=== PATIENT | female | born 1945 | race Caucasian/White ===

== ENCOUNTER → 2018-01-15 | Day surgery (SDC) | payer MEDICARE, MEDICAID ==
[2018-01-15] VITALS (11 sets, daily range): BP systolic 126–175; BP diastolic 55–92
[~2018-01-15] VITALS: Ht 170.2 cm; Wt 100.0 kg
[~2018-01-15] MED LIST: ALBU6.7H INH; ALBU8.5H4 IH; ALLO100T56 PO; AMLO-93 PO; ASPI-1265 PO; ATOR40TA PO; ATOR80TA PO; ATRNS; BENZ-16 PO; CETI-102 PO; CHOL100046 PO; DOCU250C4 PO; FURO40TA4 PO; GABA-330 PO; GUAI120015 PO; HYDROcodone/acetaminophen 10/325mg tab PO PRN; HYDROcodone/acetaminophen 5mg/325mg tablet PO PRN; HYDROmorphone 1 mg/ml syringe IV PRN; HYDROmorphone inj. 0.5 MG/0.5 ML DISP.SYRIN ONE; INSU100C4 SQ; INSU100I13 SQ; LANTUS SQ; LEVO25TA50 PO; LIDOcaine 1% w/EPI 1:100,000 30ml vial (MDV) ONE; LISI-600 PO; LORA-512 PO; LORA1TAB PO; LORazepam 0.5 MG tablet PO PRN; MAGN400C PO; MESSAGE TO PHARMACY PO ONE; MONT10TA21 PO; MULT-785 PO; OLOP2.5D OP; ORPH100T2 PO; OXAZEpam 15mg capsule PO PRN; PER10325T PO; POLY17PO10 PO; POTA10TA19 PO; RIZA10TA24 PO; SIN25C PO; SITA25TA3 PO; dextrose 50%-water 50ml dispensing syringe IV PRN; dextrose ORAL solution 15 GM/59 ML bottle PO PRN; diphenhydrAMINE 25mg capsule PO PRN; fentaNYL/PF 50MCG/1 ML 2ML syringe ONE; glucagon, human recombinant 1mg kit SUBCUT PRN; insulin Lispro (HumaLOG) vial - multi-dose SQ SCH; insulin glargine (Lantus) pen - multi-dose SQ SCH; iohexol 350 MG/ML 50ML vial IV ONE; iohexol 350MG/ML 100ml bottle IV ONE; midazolam 2 mg/2 ml injection ONE; nitroGLYCERIN 0.4mg SUBLingual tab SL PRN; nitroGLYCERIN-Tridil 50MG/D5W 250 ML IV ONE; normal saline 1000ml 1,000 ML IV SCH; ondansetron/PF 4mg/2ml inj IV PRN; proCHLORperazine 10 MG/2 ml inj IV PRN
[2018-01-15 06:44] LABS: BASOPHILS % (AUTO) 0.4 % (0-1); EOSINOPHILS # (AUTO) 0.5 X10'3 (0-0.9); EOSINOPHILS % (AUTO) 7.5 % (0-6); HEMATOCRIT 33.8 % (35.0-45.0); HEMOGLOBIN 11.4 g/dl (12.0-16.0); LYMPHOCYTES # (AUTO) 1.4 X10'3 (1.1-4.8); LYMPHOCYTES % (AUTO) 22.9 % (21-51); MEAN CORPUSCULAR HEMOGLOBIN 30.2 PG (27.0-31.0); MEAN CORPUSCULAR HGB CONC 33.7 % (33.0-36.5); MEAN CORPUSCULAR VOLUME 89.5 FL (78-98); MEAN PLATELET VOLUME 7.1 FL (7.4-10.4); MONOCYTES # (AUTO) 0.3 X10'3 (0-0.9); MONOCYTES % (AUTO) 5.4 % (2-12); NEUTROPHILS % (AUTO) 63.8 % (42-75); PLATELET COUNT 135 X10'3 (140-440); RED BLOOD COUNT 3.78 X10'6 (4.20-5.60); RED CELL DISTRIBUTION WIDTH 14.7 % (11.5-14.5); WHITE BLOOD COUNT 6.2 X10'3 (4.5-11.0)
[2018-01-15 06:50] LABS: ALBUMIN 3.5 G/DL (3.4-5.0); ANION GAP 9 (8-16); BLOOD UREA NITROGEN 29 MG/DL (7-18); BUN/CREATININE RATIO 27.6 (6.6-38.0); CALCIUM 9.3 MG/DL (8.5-10.1); CHLORIDE 108 MMOL/L (99-107); CREATININE 1.05 MG/DL (0.40-0.90); GLUCOSE 122 MG/DL (70-104); INR 0.9 INR; POTASSIUM 4.5 MMOL/L (3.5-5.1); PROTHROMBIN TIME 9.8 SECONDS (9.0-12.0); SODIUM 144 MMOL/L (135-145); TOTAL CARBON DIOXIDE 26.7 MMOL/L (24-32); eGFR 52 ML/MIN
[2018-01-15 21:06] LABS: HEMOGLOBIN A1C 7.1 % (4.5-6.2)
== END | disposition home or self-care (01) ==
LOC: SSTAY O 05:36
PROVIDERS: ATTEND Internal Medicine Cardiovascular Disease
DX: I25.10 Atherosclerotic heart disease of native coronary artery without angina pectoris (principal); G47.33 Obstructive sleep apnea (adult) (pediatric); I13.0 Hypertensive heart and chronic kidney disease with heart failure and stage 1 through stage 4 chronic kidney disease, or unspecified chronic kidney disease; E11.22 Type 2 diabetes mellitus with diabetic chronic kidney disease; N18.3 Chronic kidney disease, stage 3 (moderate); I50.9 Heart failure, unspecified; F41.9 Anxiety disorder, unspecified; Z90.710 Acquired absence of both cervix and uterus; Z88.5 Allergy status to narcotic agent; Z79.82 Long term (current) use of aspirin; Z79.4 Long term (current) use of insulin; Z86.74 Personal history of sudden cardiac arrest; Z90.89 Acquired absence of other organs; Z88.8 Allergy status to other drugs, medicaments and biological substances; Z98.890 Other specified postprocedural states; Z79.899 Other long term (current) drug therapy
CPT/HCPCS: 36415; 71046; 80048; 82948; 83036; 85025; 85610; 93005; 93458; 99152; 99153; A6257; C1760; C1769; J1170; J1644; J2250; J3010; J3490; J7030; Q0163; Q9967; A4620

== ENCOUNTER 2019-04-01 02:17 | Outpatient (CLI) | payer MEDICARE, MEDICAID ==
[~2019-04-01 02:17] MED LIST changes: -ALBU6.7H INH; -ALBU8.5H4 IH; -ATOR40TA PO; +CAPS60CR6 TP; +DOCU-329 PO; -DOCU250C4 PO; -GUAI120015 PO; -HYDROcodone/acetaminophen 10/325mg tab PO PRN; -HYDROcodone/acetaminophen 5mg/325mg tablet PO PRN; -HYDROmorphone 1 mg/ml syringe IV PRN; -HYDROmorphone inj. 0.5 MG/0.5 ML DISP.SYRIN ONE; -INSU100I13 SQ; -LIDOcaine 1% w/EPI 1:100,000 30ml vial (MDV) ONE; -LORA-512 PO; -LORazepam 0.5 MG tablet PO PRN; -MESSAGE TO PHARMACY PO ONE; -OLOP2.5D OP; -OXAZEpam 15mg capsule PO PRN; -PER10325T PO; -dextrose 50%-water 50ml dispensing syringe IV PRN; -dextrose ORAL solution 15 GM/59 ML bottle PO PRN; -diphenhydrAMINE 25mg capsule PO PRN; -fentaNYL/PF 50MCG/1 ML 2ML syringe ONE; -glucagon, human recombinant 1mg kit SUBCUT PRN; -insulin Lispro (HumaLOG) vial - multi-dose SQ SCH; -insulin glargine (Lantus) pen - multi-dose SQ SCH; -iohexol 350 MG/ML 50ML vial IV ONE; -iohexol 350MG/ML 100ml bottle IV ONE; -midazolam 2 mg/2 ml injection ONE; -nitroGLYCERIN 0.4mg SUBLingual tab SL PRN; -nitroGLYCERIN-Tridil 50MG/D5W 250 ML IV ONE; -normal saline 1000ml 1,000 ML IV SCH; -ondansetron/PF 4mg/2ml inj IV PRN; -proCHLORperazine 10 MG/2 ml inj IV PRN
[2019-04-14] MEDS ORDERED: CYCL1DRO EACHEYE (15:52)
[2019-04-14] MEDS ORDERED: ALLO100T PO (15:52)
[2019-04-15] MEDS ORDERED: FURO80TA87 PO (11:30)
[2019-04-15] MEDS ORDERED: FERR324T4 PO (11:30)
[2019-04-15] MEDS ORDERED: CETI-102 PO (11:30)
[2019-04-15] MEDS ORDERED: POTA20TA19 PO (11:30)
[2019-04-15] MEDS ORDERED: NOVRI SQ (11:30)
[2019-04-15] MEDS ORDERED: ASPI-1265 PO (11:30)
[2019-04-15] MEDS ORDERED: LANTUS SQ (11:30)
[2019-04-15] MEDS ORDERED: DULA0.75 SQ (11:30)
[2019-04-15] MEDS ORDERED: ATOR40TA PO (11:30)
[2019-04-15] MEDS ORDERED: ALLO100T PO (11:30)
[2019-04-15] MEDS ORDERED: LORA0.5T PO (11:30)
[2019-04-15] MEDS ORDERED: DOXE75CA3 PO (11:30)
[2019-04-15] MEDS ORDERED: MAGN400C PO (11:30)
[2019-04-15] MEDS ORDERED: DOCU-329 PO (11:30)
[2019-04-15] MEDS ORDERED: LISI40TA4 PO (11:30)
[2019-04-15] MEDS ORDERED: GABA800T11 PO (11:30)
[2019-04-15] MEDS ORDERED: LEVO75TA PO (11:30)
[2019-04-16] MEDS ORDERED: ASPI81TA49 PO (12:29)
[2019-04-16] MEDS ORDERED: ALBU18HF2 INH (12:29)
[2019-04-16] MEDS ORDERED: FERR-119 PO (12:29)
[2019-04-16] MEDS ORDERED: ERGO500041 PO (12:29)
[2019-04-16] MEDS ORDERED: PRAM1TAB6 PO (12:29)
== END 2019-04-01 23:59 | disposition home or self-care (01) ==
LOC: DIABETIC 02:17
PROVIDERS: ATTEND Nurse Practitioner Family
DX: E11.40 Type 2 diabetes mellitus with diabetic neuropathy, unspecified (principal); E11.21 Type 2 diabetes mellitus with diabetic nephropathy; E78.5 Hyperlipidemia, unspecified; I10 Essential (primary) hypertension
CPT/HCPCS: G0108

== ENCOUNTER 2019-04-17 05:13 | Day surgery (SDC) | payer MEDICARE, MEDICAID ==
[2019-04-14 16:50] LABS: BASOPHILS % (AUTO) 0.6 % (0-1); EOSINOPHILS # (AUTO) 0.3 X10'3 (0-0.9); EOSINOPHILS % (AUTO) 4.1 % (0-6); LYMPHOCYTES # (AUTO) 1.5 X10'3 (1.1-4.8); LYMPHOCYTES % (AUTO) 19.7 % (21-51); MEAN CORPUSCULAR HEMOGLOBIN 30.5 PG (27.0-31.0); MEAN CORPUSCULAR HGB CONC 32.8 g/dL (33.0-36.5); MEAN PLATELET VOLUME 7.4 FL (7.4-10.4); MONOCYTES # (AUTO) 0.6 X10'3 (0-0.9); MONOCYTES % (AUTO) 7.9 % (2-12); NEUTROPHILS % (AUTO) 67.7 % (42-75); PRE OP HEMATOCRIT 33.8 % (35.0-45.0); PRE OP HEMOGLOBIN 11.1 g/dL (12.0-16.0); PRE OP PLATELET COUNT 116 X10'3 (140-440); RED BLOOD COUNT 3.64 X10'6 (4.20-5.60); RED CELL DISTRIBUTION WIDTH 15.3 % (11.5-14.5)
[2019-04-14 17:06] LABS: ALBUMIN 3.6 G/DL (3.4-5.0); ALBUMIN/GLOBULIN RATIO 1.1 (1.1-1.5); ALKALINE PHOSPHATASE 82 IU/L (46-116); BLOOD UREA NITROGEN 80 MG/DL (7-18); CALCIUM 8.5 MG/DL (8.5-10.1); CHLORIDE 113 MMOL/L (99-107); CREATININE 1.51 MG/DL (0.40-0.90); PRE OP ALT 26 U/L (30-65); PRE OP ANION GAP 10 (8-16); PRE OP AST 18 U/L (10-37); PRE OP BILIRUB, TOTAL 0.2 MG/DL (0.0-1.0); PRE OP GLUCOSE 68 MG/DL (70-104); PRE OP POTASSIUM 5.3 MMOL/L (3.4-5.1); PRE OP SODIUM 144 MMOL/L (135-145); TOTAL CARBON DIOXIDE 20.7 MMOL/L (24-32); TOTAL PROTEIN 6.8 G/DL (6.4-8.2); eGFR 34 ML/MIN
[~2019-04-17] VITALS: Ht 170.2 cm; Wt 104.3 kg
[~2019-04-17 05:13] MED LIST changes: +ALBU18HF2 INH; +ALLO100T PO; -ALLO100T56 PO; -AMLO-93 PO; -ASPI-1265 PO; +ASPI81TA49 PO; +ATOR40TA PO; -ATOR80TA PO; -ATRNS; -BENZ-16 PO; -CAPS60CR6 TP; -CHOL100046 PO; +DOXE75CA3 PO; +DULA0.75 SQ; +ERGO500041 PO; +FERR-119 PO; -FURO40TA4 PO; +FURO80TA87 PO; -GABA-330 PO; +GABA800T11 PO; -INSU100C4 SQ; -LEVO25TA50 PO; +LEVO75TA PO; -LISI-600 PO; +LISI40TA4 PO; +LORA0.5T PO; -LORA1TAB PO; -MONT10TA21 PO; -MULT-785 PO; +NOVRI SQ; -ORPH100T2 PO; -POLY17PO10 PO; -POTA10TA19 PO; +POTA20TA19 PO; +PRAM1TAB6 PO; -RIZA10TA24 PO; -SIN25C PO; -SITA25TA3 PO; +ringers solution, lacted 1,000 ML IV SCH
[2019-04-17] MEDS ORDERED: cefazolin/dext.iso 2gm/100 ML IV ONE (05:30)
[2019-04-17] MEDS ORDERED: famotidine 20mg tablet PO ONE (05:30)
[2019-04-17 05:50] VITALS: BP 127/61
[2019-04-17] MEDS ORDERED: BUPIVAcaine/PF 2.5mg/ml (0.25%) 10ml vial ONE (06:37)
[2019-04-17] MEDS ORDERED: BUPIVAcaine/PF 2.5 mg/ml (0.25%) 30ml vial ONE (07:21)
[2019-04-17] MEDS ORDERED: LIDOcaine 1% 30ml preserv. free vial ONE (07:35)
[2019-04-17] MEDS ORDERED: fentaNYL/PF 50MCG/1 ML 2ML syringe ONE (07:36)
[2019-04-17] MEDS ORDERED: MIDAZolam 5mg/5ml vial ONE (07:36)
[2019-04-17] MEDS ORDERED: ketorolac trometh. 30mg/ml inj. ONE (07:39)
[2019-04-17] MEDS ORDERED: propofol inj 20 ML IV ONE (07:47)
[2019-04-17] MEDS ORDERED: LIDOcaine 2% (20mg/ml) 5ml vial ONE (07:47)
[2019-04-17 08:05] VITALS: BP 134/50
--- NOTE | 2019-04-17 08:05 | NUR ---
Received from OR via BED, accompanied by Anesthesiologist DR RENTERIA and report given by Anesthesiolgist. PATIENT A&OX4, DENIES PAIN, V/S WNL, NEUROVASCULAR CHECKS INTACT, 20G PIV LUE, SCD ON, DRESSING TO RIGHT WRIST CDI ELEVATED WITH ICEBAG APPLIED
[2019-04-17 08:15] VITALS: BP 126/59
[2019-04-17 08:25] VITALS: BP 124/62
[2019-04-17 08:35] VITALS: BP 131/63
--- NOTE | 2019-04-17 08:35 | NUR ---
PATIENT A&OX4, DENIES PAIN, V/S WNL, NEUROVASCULAR CHECKS INTACT, 20G PIV LUE D/C, SCD OFF, DRESSING TO RIGHT WRIST CDI ELEVATED WITH ICEBAG APPLIED. I HAVE REVIEWED D/C INSTRUCTIONS WITH PATIENT AND FAMILY AND THEY HAVE VERBALIZED UNDERSTANDING. PATIENT D/C HOME WITH ALL BELONGINGS AND FAMILY GAVE TRANSPORT HOME.
[2019-04-17] MEDS ORDERED: ringers solution, lacted 1,000 ML IV SCH (08:52)
[2019-04-17] MEDS ORDERED: meperidine/PF 25mg/ml syringe IV PRN ×3 (08:55)
[2019-04-17] MEDS ORDERED: proCHLORperazine 10 MG/2 ml inj IV PRN (08:55)
[2019-04-17] MEDS ORDERED: ondansetron/PF 4mg/2ml inj IV PRN (08:55)
[2019-04-17] MEDS ORDERED: morphine 4 MG/ML inj SYRINge IV PRN ×2 (08:55)
== END 2019-04-17 08:35 | disposition home or self-care (01) ==
LOC: PAS 05:13
PROVIDERS: ATTEND Orthopaedic Surgery Hand Surgery
DX: M65.341 Trigger finger, right ring finger (principal); I10 Essential (primary) hypertension; D64.9 Anemia, unspecified; E11.9 Type 2 diabetes mellitus without complications; E66.9 Obesity, unspecified; Z68.37 Body mass index [BMI] 37.0-37.9, adult; Z86.718 Personal history of other venous thrombosis and embolism; Z79.4 Long term (current) use of insulin; Z79.899 Other long term (current) drug therapy
CPT/HCPCS: 26055; 36415; 80053; 82948; 85025; 93005; J1885; J2001; J2250; J2704; J3010; J3490; A4215; J7120

== ENCOUNTER 2019-04-29 20:36 | Emergency (ER) | payer MEDICARE, MEDICAID ==
[~2019-04-29] VITALS: Ht 170.2 cm; Wt 103.2 kg
[~2019-04-29 20:36] MED LIST changes: -ringers solution, lacted 1,000 ML IV SCH
--- NOTE | 2019-04-29 21:25 | NUR ---
relieving RN for Jessica edmonds at bedside to eval pt
[2019-04-29] MEDS ORDERED: HYDROcodone/acetaminophen 10/325mg tab PO ONE (21:45)
[2019-04-29] MEDS ORDERED: LORazepam 1 MG tablet PO ONE (21:45)
[2019-04-29] MEDS ORDERED: CYCL-1 PO (21:48)
[2019-04-29] MEDS ORDERED: ondansetron/PF 4mg/2ml inj IV ONE (22:55)
[2019-04-29] MEDS ORDERED: morphine 4 MG/ML inj SYRINge IV ONE (22:55)
--- NOTE | 2019-04-29 23:40 | NUR ---
pt said pain is 0/10, able to stand and walk without assistance, "I am ready to go home", Jessica ARREOLA aware and will come reeval pt
[2019-04-30 00:17] VITALS: BP 156/60
[2019-04-30] MEDS ORDERED: LIDO700A32 TP (09:10)
== END 2019-04-29 23:50 | disposition home or self-care (01) ==
LOC: ER 20:37
DX: M54.42 Lumbago with sciatica, left side (principal); I25.10 Atherosclerotic heart disease of native coronary artery without angina pectoris; I11.0 Hypertensive heart disease with heart failure; I50.9 Heart failure, unspecified; I25.2 Old myocardial infarction; J45.909 Unspecified asthma, uncomplicated; G47.30 Sleep apnea, unspecified; E11.9 Type 2 diabetes mellitus without complications; G89.29 Other chronic pain; F31.9 Bipolar disorder, unspecified; Z90.710 Acquired absence of both cervix and uterus; Z79.82 Long term (current) use of aspirin; Z79.4 Long term (current) use of insulin; Z79.899 Other long term (current) drug therapy
CPT/HCPCS: 96374; 96375; 99283; J2270; J2405

== ENCOUNTER 2019-04-30 05:12 | Emergency (ER) | payer MEDICARE, MEDICAID ==
[~2019-04-30] VITALS: Ht 170.2 cm; Wt 103.2 kg
[~2019-04-30 05:12] MED LIST changes: +ALLO100T56 PO; +AMLO-93 PO; +ASPI-1265 PO; +ATOR80TA PO; +ATRNS; +BENZ-16 PO; +CAPS60CR6 TP; +CHOL100046 PO; +CYCL-1 PO; +CYCL1DRO EACHEYE; +FERR324T4 PO; +FURO40TA4 PO; +GABA-330 PO; +INSU100C4 SQ; +LEVO25TA50 PO; +LISI-600 PO; +LORA1TAB PO; +MONT10TA21 PO; +MULT-785 PO; +ORPH100T2 PO; +POLY17PO10 PO; +POTA10TA19 PO; +RIZA10TA24 PO; +SIN25C PO; +SITA25TA3 PO
[2019-04-30] MEDS ORDERED: morphine 4 MG/ML inj SYRINge IV ONE ×2 (05:35→06:30)
--- NOTE | 2019-04-30 06:50 | NUR ---
PT ASSISTED TO BSC STAND BY ASSIST AND NOW BACK ON [facility] AWAITING TO HAVE CT
[2019-04-30 07:26] LABS: BASOPHILS % (AUTO) 0.4 % (0-1); EOSINOPHILS # (AUTO) 0.3 X10'3 (0-0.9); HEMATOCRIT 34.7 % (35.0-45.0); HEMOGLOBIN 11.4 g/dl (12.0-16.0); LYMPHOCYTES # (AUTO) 1.4 X10'3 (1.1-4.8); LYMPHOCYTES % (AUTO) 17.3 % (21-51); MEAN CORPUSCULAR HEMOGLOBIN 30.6 PG (27.0-31.0); MEAN CORPUSCULAR HGB CONC 32.9 g/dL (33.0-36.5); MEAN CORPUSCULAR VOLUME 92.8 FL (78-98); MEAN PLATELET VOLUME 8.1 FL (7.4-10.4); MONOCYTES # (AUTO) 0.6 X10'3 (0-0.9); MONOCYTES % (AUTO) 8.2 % (2-12); NEUTROPHILS # (AUTO) 5.5 X10'3 (1.8-7.7); NEUTROPHILS % (AUTO) 70.1 % (42-75); PLATELET COUNT 95 X10'3 (140-440); RED BLOOD COUNT 3.73 X10'6 (4.20-5.60); RED CELL DISTRIBUTION WIDTH 14.7 % (11.5-14.5); WHITE BLOOD COUNT 7.9 X10'3 (4.5-11.0)
[2019-04-30 07:34] LABS: CLARITY,URINE CLEAR (Clear); COLOR,URINE YELLOW (Yellow); GLUCOSE, URINE NEGATIVE (Neg); KETONES,URINE NEGATIVE (Neg); LEUKOCYTE ESTERASE ,URINE NEGATIVE (Neg); NITRITES, URINE NEGATIVE (Neg); OCCULT BLOOD,URINE NEGATIVE (Neg); PH,URINE 5.5 (4.8-8.0); PROTEIN,URINE NEGATIVE (Neg); UROBILINOGEN,URINE 0.2 E.U/dL (0.2-1.0)
[2019-04-30 07:35] LABS: UA COLLECTION TYPE OTHER
[2019-04-30 07:38] LABS: ALANINE AMINOTRANSFERASE 25 U/L (12-78); ALBUMIN 3.6 G/DL (3.4-5.0); ALBUMIN/GLOBULIN RATIO 1.2 (1.1-1.5); ALKALINE PHOSPHATASE 77 IU/L (46-116); ANION GAP 8 (8-16); ASPARTATE AMINO TRANSFERASE 17 U/L (10-37); BILIRUBIN,TOTAL 0.2 MG/DL (0.1-1.0); BLOOD UREA NITROGEN 48 MG/DL (7-18); C-REACTIVE PROTEIN 0.06 MG/DL (0.0-0.5); CALCIUM 8.8 MG/DL (8.5-10.1); CHLORIDE 109 MMOL/L (99-107); CREATININE 1.09 MG/DL (0.40-0.90); GLUCOSE 136 MG/DL (70-104); POTASSIUM 5.1 MMOL/L (3.5-5.1); SODIUM 142 MMOL/L (135-145); TOTAL CARBON DIOXIDE 25.5 MMOL/L (24-32); TOTAL PROTEIN 6.7 G/DL (6.4-8.2); eGFR 49 ML/MIN
[2019-04-30] MEDS ORDERED: cyclobenzaprine 10mg tablet PO ONE (09:05)
[2019-04-30] MEDS ORDERED: LIDO700A32 TP (09:10)
[2019-04-30 09:55] VITALS: BP 144/74
[2019-05-01] MEDS ORDERED: HYDR-3965 PO (04:58)
== END 2019-04-30 09:55 | disposition home or self-care (01) ==
LOC: ER 05:13
DX: M54.42 Lumbago with sciatica, left side (principal); I25.10 Atherosclerotic heart disease of native coronary artery without angina pectoris; I11.0 Hypertensive heart disease with heart failure; I50.9 Heart failure, unspecified; I25.2 Old myocardial infarction; J45.909 Unspecified asthma, uncomplicated; G47.30 Sleep apnea, unspecified; E11.9 Type 2 diabetes mellitus without complications; F31.9 Bipolar disorder, unspecified; G89.29 Other chronic pain; Z90.710 Acquired absence of both cervix and uterus; Z79.82 Long term (current) use of aspirin; Z79.4 Long term (current) use of insulin; Z79.899 Other long term (current) drug therapy
CPT/HCPCS: 36415; 74176; 80053; 81003; 85025; 85610; 86140; 96374; 96376; 99284; J2270

== ENCOUNTER 2019-05-01 04:40 | Emergency (ER) | payer MEDICARE, MEDICAID ==
[~2019-05-01] VITALS: Ht 170.2 cm; Wt 103.2 kg
[~2019-05-01 04:40] MED LIST changes: +LIDO700A32 TP
[2019-05-01 04:51] VITALS: BP 199/94
--- NOTE | 2019-05-01 04:54 | NUR ---
instructed pt she can go to the [employer] store and get lidoderm patches and that she needs to use ice to the area and to massage the area.
[2019-05-01] MEDS ORDERED: HYDR-3965 PO (04:58)
[2019-05-01] MEDS ORDERED: morphine 4 MG/ML inj SYRINge IM ONE (05:00)
== END 2019-05-01 05:42 | disposition home or self-care (01) ==
LOC: ER 04:41
DX: M54.42 Lumbago with sciatica, left side (principal); I25.10 Atherosclerotic heart disease of native coronary artery without angina pectoris; I11.0 Hypertensive heart disease with heart failure; I50.9 Heart failure, unspecified; I25.2 Old myocardial infarction; J45.909 Unspecified asthma, uncomplicated; G47.30 Sleep apnea, unspecified; E11.9 Type 2 diabetes mellitus without complications; G89.29 Other chronic pain; F31.9 Bipolar disorder, unspecified; Z90.710 Acquired absence of both cervix and uterus; Z98.890 Other specified postprocedural states; Z79.82 Long term (current) use of aspirin; Z79.4 Long term (current) use of insulin; Z79.899 Other long term (current) drug therapy
CPT/HCPCS: 96372; 99283; J2270

== ENCOUNTER 2019-05-02 12:53 | Emergency (ER) | payer MEDICARE, MEDICAID ==
[~2019-05-02] VITALS: Ht 165.1 cm; Wt 103.2 kg
[~2019-05-02 12:53] MED LIST changes: +HYDR-3965 PO
[2019-05-02] MEDS ORDERED: ketorolac tromethamine 15mg/ml inj. IM ONE (13:10)
[2019-05-02] MEDS ORDERED: orphenadrine citrate 60mg/2ml inj. IM ONE (13:10)
--- NOTE | 2019-05-02 13:51 | NUR ---
faxed MRI screening sheet to number listed on form
--- NOTE | 2019-05-02 14:13 | NUR ---
PT WAS ABLE TO USE LEFT LEG WHEN TRANSFERRING TO BED, PT STATED SHE WOULD RATHER WALK TO BATHROOM THAN USE THE COMMODE BUT USED LEFT LEG TO TRANSFER TO COMMODE. WHEN TRANSFERRING BACK TO BED SHE CLAIMED THAT SHE COULDNT USE THE LEFT LEG AND REQUIRED HELP.
[2019-05-02 15:13] VITALS: BP 146/52
== END 2019-05-02 15:09 | disposition home or self-care (01) ==
LOC: ER 12:54
DX: G89.29 Other chronic pain (principal); M54.5 Low back pain; I25.10 Atherosclerotic heart disease of native coronary artery without angina pectoris; I11.0 Hypertensive heart disease with heart failure; I50.9 Heart failure, unspecified; I25.2 Old myocardial infarction; J45.909 Unspecified asthma, uncomplicated; G47.30 Sleep apnea, unspecified; E11.9 Type 2 diabetes mellitus without complications; F31.9 Bipolar disorder, unspecified; Z90.710 Acquired absence of both cervix and uterus; Z98.890 Other specified postprocedural states; Z79.82 Long term (current) use of aspirin; Z79.4 Long term (current) use of insulin; Z79.899 Other long term (current) drug therapy
CPT/HCPCS: 72131; 96372; 99284; J1885; J2360

== ENCOUNTER 2020-01-20 04:08 | Emergency (ER) | payer MEDICARE, MEDICAID ==
[~2020-01-20] VITALS: Ht 170.2 cm; Wt 90.9 kg
[~2020-01-20 04:08] MED LIST changes: -ALLO100T56 PO; -AMLO-93 PO; -ASPI-1265 PO; -ATOR80TA PO; -ATRNS; -BENZ-16 PO; -CAPS60CR6 TP; -CETI-102 PO; +CETI-90 PO; -CHOL100046 PO; -CYCL1DRO EACHEYE; -FERR324T4 PO; -FURO40TA4 PO; -GABA-330 PO; -HYDR-3965 PO; -INSU100C4 SQ; -LEVO25TA50 PO; -LISI-600 PO; -LORA1TAB PO; -MONT10TA21 PO; -MULT-785 PO; -ORPH100T2 PO; -POLY17PO10 PO; -POTA10TA19 PO; -RIZA10TA24 PO; -SIN25C PO; -SITA25TA3 PO
[2020-01-20 04:10] VITALS: BP 153/92
[2020-01-20] MEDS ORDERED: morphine 4 MG/ML inj SYRINge IM ONE (04:35)
--- NOTE | 2020-01-20 04:57 | NUR ---
[facility] CALLED FOR TRANSPORT
== END 2020-01-20 05:45 | disposition home or self-care (01) ==
LOC: ER 04:09
DX: M54.32 Sciatica, left side (principal); G89.29 Other chronic pain; I25.10 Atherosclerotic heart disease of native coronary artery without angina pectoris; I50.9 Heart failure, unspecified; I11.0 Hypertensive heart disease with heart failure; I25.2 Old myocardial infarction; J45.909 Unspecified asthma, uncomplicated; G47.30 Sleep apnea, unspecified; E11.9 Type 2 diabetes mellitus without complications; F31.9 Bipolar disorder, unspecified; Z90.710 Acquired absence of both cervix and uterus; Z98.890 Other specified postprocedural states; Z79.82 Long term (current) use of aspirin; Z79.4 Long term (current) use of insulin; Z79.899 Other long term (current) drug therapy
CPT/HCPCS: 96372; 99283; J2270

== ENCOUNTER 2020-02-04 10:54 | Emergency (ER) | payer MEDICARE, MEDICAID ==
[~2020-02-04] VITALS: Ht 172.7 cm; Wt 93.2 kg
[2020-02-04 11:41] LABS: EOSINOPHILS # (AUTO) 0.2 X10'3 (0-0.9); WHITE BLOOD COUNT 4.5 X10'3 (4.5-11.0)
[2020-02-04 11:43] LABS: BASOPHILS % (AUTO) 0.7 % (0-1); EOSINOPHILS % (AUTO) 4.5 % (0-6); HEMATOCRIT 32.5 % (35.0-45.0); HEMOGLOBIN 10.6 g/dl (12.0-16.0); LYMPHOCYTES # (AUTO) 0.8 X10'3 (1.1-4.8); LYMPHOCYTES % (AUTO) 18.5 % (21-51); MEAN CORPUSCULAR HEMOGLOBIN 30.7 PG (27.0-31.0); MEAN CORPUSCULAR HGB CONC 32.5 g/dL (33.0-36.5); MEAN CORPUSCULAR VOLUME 94.4 FL (78-98); MEAN PLATELET VOLUME 8.4 FL (7.4-10.4); MONOCYTES # (AUTO) 0.3 X10'3 (0-0.9); MONOCYTES % (AUTO) 6.3 % (2-12); NEUTROPHILS # (AUTO) 3.1 X10'3 (1.8-7.7); PLATELET COUNT 96 X10'3 (140-440); RED BLOOD COUNT 3.44 X10'6 (4.20-5.60); RED CELL DISTRIBUTION WIDTH 14.4 % (11.5-14.5)
[2020-02-04 11:50] LABS: ALANINE AMINOTRANSFERASE 29 U/L (12-78); ALBUMIN 3.5 G/DL (3.4-5.0); ALBUMIN/GLOBULIN RATIO 1.2 (1.1-1.5); ALKALINE PHOSPHATASE 85 IU/L (46-116); ANION GAP 4 (8-16); ASPARTATE AMINO TRANSFERASE 18 U/L (10-37); BILIRUBIN,TOTAL 0.2 MG/DL (0.1-1.0); BLOOD UREA NITROGEN 74 MG/DL (7-18); BUN/CREATININE RATIO 43.5 (6.6-38.0); CALCIUM 9.3 MG/DL (8.5-10.1); CHLORIDE 112 MMOL/L (99-107); ETHANOL < 0.010 GM/DL (0.0-0.010); GLUCOSE 90 MG/DL (70-104); POTASSIUM 5.8 MMOL/L (3.5-5.1); SODIUM 143 MMOL/L (135-145); TOTAL PROTEIN 6.5 G/DL (6.4-8.2); eGFR 29 ML/MIN
[2020-02-04] MEDS ORDERED: normal saline 1000ML IV soln IVB ONE (12:10)
[2020-02-04] MEDS ORDERED: morphine 4 MG/ML inj SYRINge IV PRN (12:10)
[2020-02-04] MEDS ORDERED: ondansetron/PF 4mg/2ml inj IV ONE (12:10)
[2020-02-04] MEDS ORDERED: HYDR-4353 PO (13:04)
[2020-02-04] MEDS ORDERED: HYDROcodone/acetaminophen 10/325mg tab PO ONE (13:05)
[2020-02-04 13:37] VITALS: BP 166/62
== END 2020-02-04 13:38 | disposition home or self-care (01) ==
LOC: ER 10:55
DX: M54.32 Sciatica, left side (principal); R20.0 Anesthesia of skin; R47.81 Slurred speech; H53.8 Other visual disturbances; I25.10 Atherosclerotic heart disease of native coronary artery without angina pectoris; I11.0 Hypertensive heart disease with heart failure; I50.9 Heart failure, unspecified; I25.2 Old myocardial infarction; J45.909 Unspecified asthma, uncomplicated; E11.9 Type 2 diabetes mellitus without complications; G89.29 Other chronic pain; F31.9 Bipolar disorder, unspecified; Z87.01 Personal history of pneumonia (recurrent); Z86.19 Personal history of other infectious and parasitic diseases; Z90.710 Acquired absence of both cervix and uterus; Z98.890 Other specified postprocedural states; Z60.2 Problems related to living alone; Z79.82 Long term (current) use of aspirin; Z79.4 Long term (current) use of insulin; Z79.899 Other long term (current) drug therapy
CPT/HCPCS: 36415; 80053; 80320; 85025; 93005; 96374; 96375; 99284; J2270; J2405; J7030

== ENCOUNTER 2020-02-18 11:30 | Emergency (ER) | payer MEDICARE, MEDICAID ==
[~2020-02-18] VITALS: Ht 170.2 cm; Wt 88.0 kg
[~2020-02-18 11:30] MED LIST changes: +HYDR-4353 PO
--- NOTE | 2020-02-18 12:24 | NUR ---
To x-ray via w/c.
--- NOTE | 2020-02-18 12:35 | NUR ---
Return from x-ray.
[2020-02-18] MEDS ORDERED: morphine 4 MG/ML inj SYRINge IM ONE (13:10)
[2020-02-18] MEDS ORDERED: ondansetron 4mg rapidly disintigrating tab PO ONE (13:10)
[2020-02-18 13:24] VITALS: BP 169/80
[2020-02-18] MEDS ORDERED: ORPH100T2 PO (13:33)
--- NOTE | 2020-02-18 13:55 | NUR ---
Pt's discharge instructions reviewed. Pt requested [facility] to transport her to home and that she uses their service routinely. [employer] is phoning to arrange the transport to home.
== END 2020-02-18 15:15 | disposition home or self-care (01) ==
LOC: ER 11:31
DX: M54.32 Sciatica, left side (principal); I25.10 Atherosclerotic heart disease of native coronary artery without angina pectoris; I50.9 Heart failure, unspecified; I11.0 Hypertensive heart disease with heart failure; I25.2 Old myocardial infarction; J45.909 Unspecified asthma, uncomplicated; G47.30 Sleep apnea, unspecified; E11.9 Type 2 diabetes mellitus without complications; G89.29 Other chronic pain; F31.9 Bipolar disorder, unspecified; Z86.19 Personal history of other infectious and parasitic diseases; Z90.710 Acquired absence of both cervix and uterus; Z98.890 Other specified postprocedural states; Z79.82 Long term (current) use of aspirin; Z79.4 Long term (current) use of insulin; Z79.899 Other long term (current) drug therapy
CPT/HCPCS: 73502; 96372; 99284; J2270

== ENCOUNTER 2020-02-26 03:32 | Emergency (ER) | payer MEDICARE, MEDICAID ==
[~2020-02-26] VITALS: Ht 170.2 cm; Wt 89.5 kg
[~2020-02-26 03:32] MED LIST changes: +ORPH100T2 PO
[2020-02-26 03:35] VITALS: BP 155/69
[2020-02-26] MEDS ORDERED: morphine 5 MG/ML injection IM ONE (03:50)
[2020-02-26] MEDS ORDERED: morphine 10mg/ml inj. IM ONE (03:50)
[2020-02-26] MEDS ORDERED: diazepam 5mg tablet PO ONE (04:25)
--- NOTE | 2020-02-26 04:30 | NUR ---
PT WAS SCREAMING OUT HELP ME. WHAT ARE THESE SPASMS. MD ASSESSED PT. NEW ORDERS FOR VALIUM RECEIVED. ADMINISTERED ORDERED. PT IS RESTING. NO S/SX OF DISTRESS.
--- NOTE | 2020-02-26 04:54 | NUR ---
[facility] CALLED FOR TRANSPORTATION.
== END 2020-02-26 05:42 | disposition home or self-care (01) ==
LOC: ER 03:33
DX: M54.5 Low back pain (principal); M62.838 Other muscle spasm; I25.10 Atherosclerotic heart disease of native coronary artery without angina pectoris; I50.9 Heart failure, unspecified; I11.0 Hypertensive heart disease with heart failure; I25.2 Old myocardial infarction; J45.909 Unspecified asthma, uncomplicated; G47.30 Sleep apnea, unspecified; E11.9 Type 2 diabetes mellitus without complications; G89.29 Other chronic pain; F31.9 Bipolar disorder, unspecified; Z86.19 Personal history of other infectious and parasitic diseases; Z90.710 Acquired absence of both cervix and uterus; Z98.890 Other specified postprocedural states; Z79.82 Long term (current) use of aspirin; Z79.4 Long term (current) use of insulin; Z79.899 Other long term (current) drug therapy
CPT/HCPCS: 96372; 99283; J2270

== ENCOUNTER 2020-03-12 16:50 | Emergency (ER) | payer MEDICARE, MEDICAID ==
[~2020-03-12] VITALS: Ht 170.2 cm; Wt 86.8 kg
[~2020-03-12 16:50] MED LIST changes: -DOCU-329 PO; +DOCU250C96 PO; -HYDR-4353 PO
[2020-03-12] MEDS ORDERED: ondansetron 4mg rapidly disintigrating tab PO ONE (18:00)
[2020-03-12] MEDS ORDERED: morphine 4 MG/ML inj SYRINge IM ONE (18:00)
[2020-03-12 18:12] VITALS: BP 92/64
== END 2020-03-13 | disposition home or self-care (01) ==
LOC: ER 03-13 02:21
DX: G89.29 Other chronic pain (principal); M54.5 Low back pain; I25.10 Atherosclerotic heart disease of native coronary artery without angina pectoris; I50.9 Heart failure, unspecified; I11.0 Hypertensive heart disease with heart failure; I25.2 Old myocardial infarction; J45.909 Unspecified asthma, uncomplicated; G47.30 Sleep apnea, unspecified; E11.9 Type 2 diabetes mellitus without complications; F31.9 Bipolar disorder, unspecified; Z90.710 Acquired absence of both cervix and uterus; Z98.890 Other specified postprocedural states; Z79.82 Long term (current) use of aspirin; Z79.4 Long term (current) use of insulin; Z79.899 Other long term (current) drug therapy
CPT/HCPCS: 96372; 99284; J2270

== ENCOUNTER 2020-03-17 10:17 | Emergency (ER) | payer MEDICARE, MEDICAID ==
[~2020-03-17] VITALS: Ht 170.2 cm; Wt 85.0 kg
[~2020-03-17 10:17] MED LIST changes: +DOCU-329 PO; -DOCU250C96 PO
[2020-03-17 12:38] VITALS: BP 142/68
== END 2020-03-17 12:41 | disposition home or self-care (01) ==
LOC: ER 10:17
DX: M54.32 Sciatica, left side (principal); I25.10 Atherosclerotic heart disease of native coronary artery without angina pectoris; I50.9 Heart failure, unspecified; I11.0 Hypertensive heart disease with heart failure; I25.2 Old myocardial infarction; J45.909 Unspecified asthma, uncomplicated; G47.30 Sleep apnea, unspecified; E11.9 Type 2 diabetes mellitus without complications; G89.29 Other chronic pain; F31.9 Bipolar disorder, unspecified; Z86.19 Personal history of other infectious and parasitic diseases; Z90.710 Acquired absence of both cervix and uterus; Z98.890 Other specified postprocedural states; Z79.82 Long term (current) use of aspirin; Z79.4 Long term (current) use of insulin; Z79.899 Other long term (current) drug therapy
CPT/HCPCS: 99281

== ENCOUNTER 2020-03-27 18:47 | Emergency (ER) | payer MEDICARE, MEDICAID ==
[~2020-03-27] VITALS: Ht 170.2 cm; Wt 85.0 kg
[~2020-03-27 18:47] MED LIST changes: -DOCU-329 PO; +DOCU250C96 PO
[2020-03-27 18:56] VITALS: BP 188/102
--- NOTE | 2020-03-27 19:40 | NUR ---
Pt. states she cannot have NSAIDs due to low kidney function per Dr. Felix
[2020-03-27] MEDS ORDERED: LIDOcaine 5% patch TP STA (21:09)
[2020-03-27] MEDS ORDERED: ondansetron 4mg rapidly disintigrating tab PO ONE (21:10)
[2020-03-27] MEDS ORDERED: HYDROcodone/acetaminophen 5mg/325mg tablet PO ONE (21:10)
== END 2020-03-27 22:19 | disposition home or self-care (01) ==
LOC: ER 18:48
DX: M54.5 Low back pain (principal); I25.10 Atherosclerotic heart disease of native coronary artery without angina pectoris; I50.9 Heart failure, unspecified; I11.0 Hypertensive heart disease with heart failure; I25.2 Old myocardial infarction; J45.909 Unspecified asthma, uncomplicated; G47.30 Sleep apnea, unspecified; E11.9 Type 2 diabetes mellitus without complications; F31.9 Bipolar disorder, unspecified; Z90.710 Acquired absence of both cervix and uterus; Z98.890 Other specified postprocedural states; Z79.82 Long term (current) use of aspirin; Z79.4 Long term (current) use of insulin; Z79.899 Other long term (current) drug therapy
CPT/HCPCS: 99284

== ENCOUNTER 2020-04-07 06:40 | Emergency (ER) | payer MEDICARE, MEDICAID ==
[~2020-04-07] VITALS: Ht 170.2 cm; Wt 85.5 kg
[2020-04-07] MEDS ORDERED: morphine 4 MG/ML inj SYRINge IV ONE (07:40)
[2020-04-07] MEDS ORDERED: proCHLORperazine 10 MG/2 ml inj IM ONE (07:40)
[2020-04-07] MEDS ORDERED: morphine 4 MG/ML inj SYRINge IM ONE (08:45)
[2020-04-07] MEDS ORDERED: cyclobenzaprine 10mg tablet PO ONE (09:45)
--- NOTE | 2020-04-07 11:37 | NUR ---
PATIENT UP TO BATHROOM WITH WALKER. TOLERATED WELL.
--- NOTE | 2020-04-07 11:52 | NUR ---
PATIENT IS DISCHARGED AND BEING TAKEN HOME PER [facility], SINCE [facility] HAS 2.5 HOUR ETA. DC INSTRUCTIONS GIVEN AND PATIENT VERBALIZED UNDERSTANDING.
[2020-04-07 11:53] VITALS: BP 136/46
== END 2020-04-07 11:57 | disposition home or self-care (01) ==
LOC: ER 06:41
DX: M54.32 Sciatica, left side (principal); I25.10 Atherosclerotic heart disease of native coronary artery without angina pectoris; I50.9 Heart failure, unspecified; I11.0 Hypertensive heart disease with heart failure; I25.2 Old myocardial infarction; J45.909 Unspecified asthma, uncomplicated; G47.30 Sleep apnea, unspecified; E11.9 Type 2 diabetes mellitus without complications; G89.29 Other chronic pain; F31.9 Bipolar disorder, unspecified; Z90.710 Acquired absence of both cervix and uterus; Z79.899 Other long term (current) drug therapy; Z79.82 Long term (current) use of aspirin; Z79.4 Long term (current) use of insulin
CPT/HCPCS: 96372; 96374; 99284; J0780; J2270

== ENCOUNTER 2020-04-09 13:14 | Emergency (ER) | payer MEDICARE, MEDICAID ==
[~2020-04-09] VITALS: Ht 167.6 cm; Wt 86.0 kg
[2020-04-09] MEDS ORDERED: HYDROcodone/acetaminophen 10/325mg tab PO ONE (14:35)
--- NOTE | 2020-04-09 15:30 | NUR ---
PT REPORTS THAT SHE WOULD ISHA TO TAKE A TAXI HOME, I EXPLAINED THAT WE ALREADY CALED [facility]. PT SAID "[facility] TAKES TOO LONG AND I HAVE A WALKER OUT IN FRONT OF MY HOUSE THAT I CAN USE TO GET INSIDE". I EXPAINED THAT WE HAVE ALREADY INITIATED THE CALL FOR [facility].
[2020-04-09 15:55] VITALS: BP 153/58
== END 2020-04-09 16:02 | disposition home or self-care (01) ==
LOC: ER 13:15
DX: M79.604 Pain in right leg (principal); M79.605 Pain in left leg; R53.1 Weakness; I25.10 Atherosclerotic heart disease of native coronary artery without angina pectoris; I11.0 Hypertensive heart disease with heart failure; I50.9 Heart failure, unspecified; I25.2 Old myocardial infarction; J45.909 Unspecified asthma, uncomplicated; E11.9 Type 2 diabetes mellitus without complications; G89.29 Other chronic pain; F31.9 Bipolar disorder, unspecified; Z87.01 Personal history of pneumonia (recurrent); Z86.19 Personal history of other infectious and parasitic diseases; Z90.710 Acquired absence of both cervix and uterus; Z98.890 Other specified postprocedural states; Z60.2 Problems related to living alone; Z79.82 Long term (current) use of aspirin; Z79.4 Long term (current) use of insulin; Z79.899 Other long term (current) drug therapy
CPT/HCPCS: 99283

== ENCOUNTER 2020-06-20 12:16 | Emergency (ER) | payer MEDICARE, MEDICAID ==
[~2020-06-20] VITALS: Ht 170.2 cm; Wt 85.7 kg
[2020-06-20 14:54] LABS: CLARITY,URINE CLEAR (Clear); COLOR,URINE STRAW (Yellow); GLUCOSE, URINE NEGATIVE (Neg); KETONES,URINE NEGATIVE (Neg); LEUKOCYTE ESTERASE ,URINE NEGATIVE (Neg); NITRITES, URINE NEGATIVE (Neg); OCCULT BLOOD,URINE NEGATIVE (Neg); PH,URINE 5.5 (4.8-8.0); PROTEIN,URINE NEGATIVE (Neg); UROBILINOGEN,URINE 0.2 E.U/dL (0.2-1.0)
[2020-06-20 14:57] LABS: UA COLLECTION TYPE CLN CATCH MIDSTREAM
[2020-06-20 15:23] LABS: BASOPHILS % (AUTO) 0.8 % (0-1); EOSINOPHILS # (AUTO) 0.1 X10'3 (0-0.9); EOSINOPHILS % (AUTO) 2.5 % (0-6); HEMATOCRIT 28.5 % (35.0-45.0); HEMOGLOBIN 9.4 g/dl (12.0-16.0); LYMPHOCYTES # (AUTO) 0.8 X10'3 (1.1-4.8); LYMPHOCYTES % (AUTO) 17.6 % (21-51); MEAN CORPUSCULAR HEMOGLOBIN 30.1 PG (27.0-31.0); MEAN CORPUSCULAR HGB CONC 33.1 g/dL (33.0-36.5); MEAN CORPUSCULAR VOLUME 91.2 FL (78-98); MEAN PLATELET VOLUME 8.1 FL (7.4-10.4); MONOCYTES # (AUTO) 0.4 X10'3 (0-0.9); MONOCYTES % (AUTO) 8.5 % (2-12); NEUTROPHILS # (AUTO) 3.2 X10'3 (1.8-7.7); NEUTROPHILS % (AUTO) 70.6 % (42-75); PLATELET COUNT 107 X10'3 (140-440); RED BLOOD COUNT 3.13 X10'6 (4.20-5.60); RED CELL DISTRIBUTION WIDTH 15.3 % (11.5-14.5); WHITE BLOOD COUNT 4.5 X10'3 (4.5-11.0)
[2020-06-20 15:41] LABS: ALANINE AMINOTRANSFERASE 23 U/L (12-78); ALBUMIN 3.4 G/DL (3.4-5.0); ALKALINE PHOSPHATASE 65 IU/L (46-116); ANION GAP 10 (8-16); ASPARTATE AMINO TRANSFERASE 18 U/L (10-37); BILIRUBIN,TOTAL 0.2 MG/DL (0.1-1.0); BLOOD UREA NITROGEN 61 MG/DL (7-18); CALCIUM 9.8 MG/DL (8.5-10.1); CHLORIDE 107 MMOL/L (99-107); CREATININE 1.27 MG/DL (0.40-0.90); GLUCOSE 142 MG/DL (70-104); POTASSIUM 4.6 MMOL/L (3.5-5.1); SODIUM 143 MMOL/L (135-145); TOTAL CARBON DIOXIDE 26.3 MMOL/L (24-32); TOTAL PROTEIN 6.8 G/DL (6.4-8.2); eGFR 41 ML/MIN
[2020-06-20] MEDS ORDERED: HYDROcodone/acetaminophen 5mg/325mg tablet PO ONE (15:50)
[2020-06-20] MEDS ORDERED: CEPH500C5 PO (15:55)
[2020-06-20 16:05] VITALS: BP 172/43
== END 2020-06-20 16:06 | disposition home or self-care (01) ==
LOC: ER 12:17
DX: L03.116 Cellulitis of left lower limb (principal); I25.10 Atherosclerotic heart disease of native coronary artery without angina pectoris; I50.9 Heart failure, unspecified; I11.0 Hypertensive heart disease with heart failure; I25.2 Old myocardial infarction; J45.909 Unspecified asthma, uncomplicated; G47.30 Sleep apnea, unspecified; E11.9 Type 2 diabetes mellitus without complications; G89.29 Other chronic pain; Z86.718 Personal history of other venous thrombosis and embolism; Z90.710 Acquired absence of both cervix and uterus; Z98.890 Other specified postprocedural states; Z79.82 Long term (current) use of aspirin; Z79.4 Long term (current) use of insulin; Z79.899 Other long term (current) drug therapy
CPT/HCPCS: 36415; 80053; 81003; 85025; 93971; 99284

== ENCOUNTER 2020-08-03 20:43 | Emergency (ER) | payer MEDICARE, MEDICAID ==
[~2020-08-03] VITALS: Ht 170.2 cm; Wt 82.0 kg
[2020-08-03] MEDS ORDERED: CYCL-1 PO (23:19)
[2020-08-03] MEDS ORDERED: diazepam 5mg tablet PO ONE (23:20)
[2020-08-04 00:03] VITALS: BP 110/39
--- NOTE | 2020-08-04 00:22 | NUR ---
[facility] [employer] ESTIM[employer] AND DRAFTER SUPERVISOR PT TILL 0500, [facility] WAS CALLED TO SEE IF THEY WILL BE WILLING TO ESTIMATOR AND DRAFTER SUPERVISOR PT AND GET HER WALKER OFF OF HER PORCH AND BRING IT TO THE CAR. THEY WILL CALL BACK AND LET US KNOW
--- NOTE | 2020-08-04 00:53 | NUR ---
[facility] CAME FOR PT AND PT STATED SHE WAS ABLE TO AMBULATE WITHOUT ASSISTANCE TO HER APARTMENT WITH WALKER. pT WAS GAIT TESTED BEFORE DISCHARGE AND AMBULATED 100FT WITH WALKER WITHOUT ASSISTANCE
== END 2020-08-04 00:54 | disposition home or self-care (01) ==
LOC: ER 20:44
DX: M54.5 Low back pain (principal); G89.29 Other chronic pain; M62.830 Muscle spasm of back; I25.10 Atherosclerotic heart disease of native coronary artery without angina pectoris; I11.0 Hypertensive heart disease with heart failure; I50.9 Heart failure, unspecified; J45.909 Unspecified asthma, uncomplicated; G47.30 Sleep apnea, unspecified; E11.9 Type 2 diabetes mellitus without complications; Z86.19 Personal history of other infectious and parasitic diseases; Z90.710 Acquired absence of both cervix and uterus; Z79.82 Long term (current) use of aspirin; Z79.4 Long term (current) use of insulin; Z79.899 Other long term (current) drug therapy; Z98.890 Other specified postprocedural states
CPT/HCPCS: 99283; 99284

== ENCOUNTER 2020-09-17 16:25 | Emergency (ER) | payer MEDICARE, MEDICAID ==
[~2020-09-17] VITALS: Ht 170.2 cm; Wt 85.1 kg
[2020-09-17 16:38] VITALS: BP 158/96
[2020-09-17] MEDS ORDERED: LORazepam 1 MG tablet PO ONE (18:30)
[2020-09-17 19:07] LABS: BASOPHILS % (AUTO) 0.5 % (0-1); EOSINOPHILS # (AUTO) 0.5 X10'3 (0-0.9); EOSINOPHILS % (AUTO) 7.5 % (0-6); HEMATOCRIT 30.7 % (35.0-45.0); HEMOGLOBIN 10.1 g/dl (12.0-16.0); LYMPHOCYTES # (AUTO) 1.1 X10'3 (1.1-4.8); LYMPHOCYTES % (AUTO) 17.8 % (21-51); MEAN PLATELET VOLUME 8.1 FL (7.4-10.4); MONOCYTES # (AUTO) 0.4 X10'3 (0-0.9); MONOCYTES % (AUTO) 6.8 % (2-12); NEUTROPHILS # (AUTO) 4.3 X10'3 (1.8-7.7); NEUTROPHILS % (AUTO) 67.4 % (42-75); PLATELET COUNT 100 X10'3 (140-440); RED BLOOD COUNT 3.27 X10'6 (4.20-5.60); RED CELL DISTRIBUTION WIDTH 15.3 % (11.5-14.5); WHITE BLOOD COUNT 6.3 X10'3 (4.5-11.0)
[2020-09-17] MEDS ORDERED: ondansetron/PF 4mg/2ml inj IV ONE (19:50)
[2020-09-17] MEDS ORDERED: morphine 4 MG/ML inj SYRINge IV ONE (19:50)
--- NOTE | 2020-09-17 19:59 | NUR ---
Pt given commode and hat to collect urine. Pt given privacy. Pt placed her own urine in cup and threw away hat before staff could visualize urine. Unknown if pt followed clean collection procedures. Urine sent to lab.
[2020-09-17 20:10] LABS: CLARITY,URINE CLEAR (Clear); COLOR,URINE YELLOW (Yellow); GLUCOSE, URINE NEGATIVE (Neg); KETONES,URINE NEGATIVE (Neg); LEUKOCYTE ESTERASE ,URINE TRACE (Neg); NITRITES, URINE NEGATIVE (Neg); OCCULT BLOOD,URINE NEGATIVE (Neg); PH,URINE 5.5 (4.8-8.0); PROTEIN,URINE NEGATIVE (Neg); UROBILINOGEN,URINE 0.2 E.U/dL (0.2-1.0)
[2020-09-17 20:16] LABS: BACTERIA,URINE NONE SEEN /HPF (Neg); RBC,URINE NONE SEEN /HPF (0-2); SQUAMOUS EPITHELIAL CELL,UR FEW /LPF (FEW); UA COLLECTION TYPE CLN CATCH MIDSTREAM; WBC,URINE 0-4 /HPF (0-4)
== END 2020-09-17 21:50 | disposition home or self-care (01) ==
LOC: ER 16:25
DX: M54.41 Lumbago with sciatica, right side (principal); M62.830 Muscle spasm of back; G89.29 Other chronic pain; I25.10 Atherosclerotic heart disease of native coronary artery without angina pectoris; I11.0 Hypertensive heart disease with heart failure; I50.9 Heart failure, unspecified; I25.2 Old myocardial infarction; J45.909 Unspecified asthma, uncomplicated; G47.30 Sleep apnea, unspecified; E11.9 Type 2 diabetes mellitus without complications; F31.9 Bipolar disorder, unspecified; Z86.718 Personal history of other venous thrombosis and embolism; Z90.710 Acquired absence of both cervix and uterus; Z98.890 Other specified postprocedural states; Z60.2 Problems related to living alone; Z86.19 Personal history of other infectious and parasitic diseases; Z79.4 Long term (current) use of insulin; Z79.899 Other long term (current) drug therapy
CPT/HCPCS: 36415; 71045; 81001; 83605; 84145; 85025; 87040; 87088; 93005; 96374; 96375; 99285; J2270; J2405

== ENCOUNTER 2020-10-03 23:50 | Emergency (ER) | payer MEDICARE, MEDICAID ==
[~2020-10-03] VITALS: Ht 170.2 cm; Wt 93.6 kg
[2020-10-03 23:54] VITALS: BP 135/104
[2020-10-04] MEDS ORDERED: oxyCODONE/APAP 10/325mg tablet PO ONE
--- NOTE | 2020-10-04 00:47 | NUR ---
pt prepared for dc. awaiting transport. jannie cuevas working on ride from [facility].
--- NOTE | 2020-10-04 01:37 | NUR ---
PT WILL BE PICKED UP AROUND 5 AM.
--- NOTE | 2020-10-04 02:14 | NUR ---
PT REPORTS SHE DOES NOT WANT TO WAIT UNTIL THE AM WHEN [facility] CAN PICK HER UP. STATES SHE CAN TAKE A TAXI HOME TO HER SENIOR APARTMENT AND THAT SHE WILL ONLY NEED TO WALK A SHORT DISTANCE TO GET INTO HER APARTMENT AND PT GAIT TESTED AND ABLE TO WALK BY HERSELF WITH SLOW STEADY GAIT 30 FEET, WITNESSED BY MYSELF AND GILL SHELLEY RN. PT STATES HER NEIGHBOR WILL BE ABLE TO HELP HER GET INTO HER HOME
== END 2020-10-04 03:23 | disposition home or self-care (01) ==
LOC: ER 23:51
DX: G89.29 Other chronic pain (principal); M54.5 Low back pain; I25.10 Atherosclerotic heart disease of native coronary artery without angina pectoris; I11.0 Hypertensive heart disease with heart failure; I50.9 Heart failure, unspecified; I25.2 Old myocardial infarction; J45.909 Unspecified asthma, uncomplicated; E11.9 Type 2 diabetes mellitus without complications; F31.9 Bipolar disorder, unspecified; Z86.19 Personal history of other infectious and parasitic diseases; Z87.01 Personal history of pneumonia (recurrent); Z86.718 Personal history of other venous thrombosis and embolism; Z90.710 Acquired absence of both cervix and uterus; Z98.890 Other specified postprocedural states; Z60.2 Problems related to living alone; Z79.82 Long term (current) use of aspirin; Z79.4 Long term (current) use of insulin; Z79.899 Other long term (current) drug therapy
CPT/HCPCS: 99283

== ENCOUNTER 2020-11-04 11:48 | Emergency (ER) | payer MEDICARE, MEDICAID ==
[~2020-11-04] VITALS: Ht 170.2 cm; Wt 89.5 kg
[~2020-11-04 11:48] MED LIST changes: +LISI40TA13 PO; -LISI40TA4 PO
[2020-11-04] MEDS ORDERED: oxyCODONE/APAP 10/325mg tablet PO ONE (12:40)
[2020-11-04 13:25] VITALS: BP 168/64
== END 2020-11-04 12:49 | disposition home or self-care (01) ==
LOC: ER 11:48
DX: M54.5 Low back pain (principal); G89.29 Other chronic pain; I25.10 Atherosclerotic heart disease of native coronary artery without angina pectoris; I11.0 Hypertensive heart disease with heart failure; I50.9 Heart failure, unspecified; I25.2 Old myocardial infarction; J45.909 Unspecified asthma, uncomplicated; G47.30 Sleep apnea, unspecified; E11.9 Type 2 diabetes mellitus without complications; F31.9 Bipolar disorder, unspecified; Z86.718 Personal history of other venous thrombosis and embolism; Z90.710 Acquired absence of both cervix and uterus; Z98.890 Other specified postprocedural states; Z60.2 Problems related to living alone; Z79.82 Long term (current) use of aspirin; Z79.899 Other long term (current) drug therapy
CPT/HCPCS: 99283

== ENCOUNTER 2020-12-13 01:00 | Emergency (ER) | payer BC, MEDICAID ==
[~2020-12-13] VITALS: Ht 170.2 cm; Wt 82.3 kg
[2020-12-13] MEDS ORDERED: diazepam inj 5 MG/ML inj. IV ONE ×2 (01:20→03:15)
[2020-12-13] MEDS ORDERED: oxyCODONE/APAP 10/325mg tablet PO ONE (01:55)
[2020-12-13] MEDS ORDERED: ketorolac trometh. 30mg/ml inj. IV ONE (03:20)
[2020-12-13 05:26] VITALS: BP 144/63
== END 2020-12-13 05:29 | disposition home or self-care (01) ==
LOC: ER 01:00
DX: M54.5 Low back pain (principal); G89.29 Other chronic pain; I25.10 Atherosclerotic heart disease of native coronary artery without angina pectoris; I11.0 Hypertensive heart disease with heart failure; I50.9 Heart failure, unspecified; I25.2 Old myocardial infarction; J45.909 Unspecified asthma, uncomplicated; G47.30 Sleep apnea, unspecified; E11.9 Type 2 diabetes mellitus without complications; F31.9 Bipolar disorder, unspecified; Z86.19 Personal history of other infectious and parasitic diseases; Z86.718 Personal history of other venous thrombosis and embolism; Z90.710 Acquired absence of both cervix and uterus; Z60.2 Problems related to living alone; Z79.82 Long term (current) use of aspirin; Z79.4 Long term (current) use of insulin; Z79.899 Other long term (current) drug therapy
CPT/HCPCS: 96374; 96375; 96376; 99284; J1885; J3360

== ENCOUNTER 2021-03-04 12:09 | Emergency (ER) | payer MEDICARE, MEDICAID ==
[~2021-03-04] VITALS: Ht 170.2 cm; Wt 85.0 kg
[2021-03-04 12:25] VITALS: BP 189/70
[2021-03-04] MEDS ORDERED: HYDROcodone/acetaminophen 5mg/325mg tablet PO ONE (13:50)
[2021-03-04] MEDS ORDERED: DIAZ5TAB PO (13:53)
== END 2021-03-04 14:25 | disposition home or self-care (01) ==
LOC: ER 12:09
DX: M54.5 Low back pain (principal); R20.0 Anesthesia of skin; I25.10 Atherosclerotic heart disease of native coronary artery without angina pectoris; I11.0 Hypertensive heart disease with heart failure; I50.9 Heart failure, unspecified; I25.2 Old myocardial infarction; J45.909 Unspecified asthma, uncomplicated; E11.9 Type 2 diabetes mellitus without complications; N19 Unspecified kidney failure; G89.29 Other chronic pain; G47.39 Other sleep apnea; Z87.01 Personal history of pneumonia (recurrent); Z86.718 Personal history of other venous thrombosis and embolism; Z79.82 Long term (current) use of aspirin; Z79.4 Long term (current) use of insulin; Z79.899 Other long term (current) drug therapy
CPT/HCPCS: 99283

== ENCOUNTER 2021-03-22 21:01 | Emergency (ER) | payer MEDICARE, MEDICAID ==
[~2021-03-22] VITALS: Ht 170.2 cm; Wt 85.5 kg
[~2021-03-22 21:01] MED LIST changes: +DIAZ5TAB PO; +LIDOcaine 1% 30ml preserv. free vial ONE
[2021-03-22] MEDS ORDERED: acetaminophen 325mg tablet PO ONE (23:05)
[2021-03-22] MEDS ORDERED: morphine 4 MG/ML inj SYRINge IV ONE (23:05)
[2021-03-22] MEDS ORDERED: ondansetron/PF 4mg/2ml inj IV ONE (23:05)
[2021-03-22] MEDS ORDERED: diazepam inj 5 MG/ML inj. IV ONE (23:05)
[2021-03-22] MEDS ORDERED: ketorolac trometh. 30mg/ml inj. IV ONE (23:05)
[2021-03-22] MEDS ORDERED: normal saline 1000ml 1,000 ML IV ONE (23:15)
[2021-03-22] MEDS ORDERED: magnesium 2GM in 50ml NS 50 ML IV ONE (23:15)
--- NOTE | 2021-03-22 23:40 | NUR ---
pt very sleepy after medications, oxygen applied, and cardiac monitoring. arousable to verbal stimuli. MD aware
[2021-03-22] MEDS ORDERED: celeCOXIB 100mg capsule PO ONE (23:50)
--- NOTE | 2021-03-23 00:04 | NUR ---
pt yelling and writhing in pain again, dr child at bedside.
[2021-03-23] MEDS ORDERED: orphenadrine citrate 60mg/2ml inj. IM ONE (00:05)
[2021-03-23] MEDS: haloperidol lactate 5mg/ml inj IM ONE ×2 (01:50→02:28)
--- NOTE | 2021-03-23 05:54 | NUR ---
attempted to ambulate patient. patient unable to stay awake long enought to sit up. MD notified
[2021-03-23 10:38] VITALS: BP 184/82
--- NOTE | 2021-03-23 10:38 | NUR ---
Patient awaiting [facility] for transfer, Patient waiting in lobby in wheelchair with walker.
== END 2021-03-23 10:39 | disposition home or self-care (01) ==
LOC: ER 21:01
DX: M54.42 Lumbago with sciatica, left side (principal); I25.10 Atherosclerotic heart disease of native coronary artery without angina pectoris; I11.0 Hypertensive heart disease with heart failure; I50.9 Heart failure, unspecified; I25.2 Old myocardial infarction; J45.909 Unspecified asthma, uncomplicated; E11.9 Type 2 diabetes mellitus without complications; G89.29 Other chronic pain; F31.9 Bipolar disorder, unspecified; Z87.01 Personal history of pneumonia (recurrent); Z86.19 Personal history of other infectious and parasitic diseases; Z86.718 Personal history of other venous thrombosis and embolism; Z90.710 Acquired absence of both cervix and uterus; Z98.890 Other specified postprocedural states; Z60.2 Problems related to living alone; Z79.82 Long term (current) use of aspirin; Z79.4 Long term (current) use of insulin; Z79.899 Other long term (current) drug therapy
CPT/HCPCS: 20552; 96365; 96372; 96375; 99285; J1630; J2001; J2270; J2360; J2405; J3360; J3475; J7030

== ENCOUNTER 2021-05-22 08:23 | Emergency (ER) | payer MEDICARE, MEDICAID ==
[~2021-05-22] VITALS: Ht 170.2 cm; Wt 97.7 kg
[~2021-05-22 08:23] MED LIST changes: -LIDOcaine 1% 30ml preserv. free vial ONE
[2021-05-22] MEDS ORDERED: HYDROcodone/acetaminophen 10/325mg tab PO ONE (09:35)
[2021-05-22 10:18] LABS: BASOPHILS % (AUTO) 0.7 % (0-1); EOSINOPHILS # (AUTO) 0.2 X10'3 (0-0.9); EOSINOPHILS % (AUTO) 2.7 % (0-6); HEMATOCRIT 31.7 % (35.0-45.0); HEMOGLOBIN 10.3 g/dl (12.0-16.0); LYMPHOCYTES # (AUTO) 0.8 X10'3 (1.1-4.8); MEAN CORPUSCULAR HEMOGLOBIN 29.6 PG (27.0-31.0); MEAN CORPUSCULAR HGB CONC 32.5 g/dL (33.0-36.5); MEAN CORPUSCULAR VOLUME 91.1 FL (78-98); MEAN PLATELET VOLUME 7.8 FL (7.4-10.4); MONOCYTES # (AUTO) 0.3 X10'3 (0-0.9); MONOCYTES % (AUTO) 5.6 % (2-12); NEUTROPHILS # (AUTO) 4.7 X10'3 (1.8-7.7); PLATELET COUNT 136 X10'3 (140-440); RED BLOOD COUNT 3.48 X10'6 (4.20-5.60); RED CELL DISTRIBUTION WIDTH 16.2 % (11.5-14.5); WHITE BLOOD COUNT 6.1 X10'3 (4.5-11.0)
[2021-05-22 10:20] LABS: CLARITY,URINE SLIGHTLY CLOUDY (Clear); COLOR,URINE STRAW (Yellow); UA COLLECTION TYPE VOIDED
[2021-05-22 10:21] LABS: GLUCOSE, URINE NEGATIVE (Neg); KETONES,URINE NEGATIVE (Neg); LEUKOCYTE ESTERASE ,URINE NEGATIVE (Neg); NITRITES, URINE NEGATIVE (Neg); OCCULT BLOOD,URINE TRACE-INTACT (Neg); PROTEIN,URINE 30 mg/dl (Neg); UROBILINOGEN,URINE 0.2 E.U/dL (0.2-1.0)
[2021-05-22 10:29] LABS: ALANINE AMINOTRANSFERASE 33 U/L (12-78); ALBUMIN 3.4 G/DL (3.4-5.0); ALBUMIN/GLOBULIN RATIO 0.9 (1.1-1.5); ALKALINE PHOSPHATASE 112 IU/L (46-116); ANION GAP 12 (8-16); ASPARTATE AMINO TRANSFERASE 16 U/L (10-37); BILIRUBIN,TOTAL 0.3 MG/DL (0.1-1.0); BLOOD UREA NITROGEN 58 MG/DL (7-18); BUN/CREATININE RATIO 48.7 (6.6-38.0); CALCIUM 8.9 MG/DL (8.5-10.1); CHLORIDE 107 MMOL/L (99-107); CREATININE 1.19 MG/DL (0.40-0.90); GLUCOSE 191 MG/DL (70-104); POTASSIUM 4.3 MMOL/L (3.5-5.1); SODIUM 144 MMOL/L (135-145); TOTAL CARBON DIOXIDE 24.6 MMOL/L (24-32); TOTAL PROTEIN 7.1 G/DL (6.4-8.2); eGFR 44 ML/MIN
[2021-05-22 10:44] LABS: SQUAMOUS EPITHELIAL CELL,UR FEW /LPF (FEW)
[2021-05-22 10:45] LABS: BACTERIA,URINE NONE SEEN /HPF (Neg); RBC,URINE 0-2 /HPF (0-2); WBC,URINE 0-4 /HPF (0-4)
[2021-05-22] MEDS ORDERED: HYDR-3973 PO (10:51)
[2021-05-22] MEDS ORDERED: OXYC-138 PO (10:57)
[2021-05-22 11:25] VITALS: BP 183/78
== END 2021-05-22 11:27 | disposition home or self-care (01) ==
LOC: ER 08:24
DX: G89.29 Other chronic pain (principal); M54.9 Dorsalgia, unspecified; R10.30 Lower abdominal pain, unspecified; I25.10 Atherosclerotic heart disease of native coronary artery without angina pectoris; I11.0 Hypertensive heart disease with heart failure; I50.9 Heart failure, unspecified; I25.2 Old myocardial infarction; J45.909 Unspecified asthma, uncomplicated; E11.9 Type 2 diabetes mellitus without complications; Z87.01 Personal history of pneumonia (recurrent); Z86.19 Personal history of other infectious and parasitic diseases; Z90.710 Acquired absence of both cervix and uterus; Z98.890 Other specified postprocedural states; Z60.2 Problems related to living alone; Z79.82 Long term (current) use of aspirin; Z79.4 Long term (current) use of insulin; Z79.899 Other long term (current) drug therapy
CPT/HCPCS: 36415; 80053; 81001; 85025; 99284

== ENCOUNTER → 2021-10-27 | Day surgery (SDC) | payer MEDICARE, MEDICAID ==
[2021-10-26 15:25] LABS: BASOPHILS # (AUTO) 0.1 X10'3 (0-0.2); BASOPHILS % (AUTO) 0.8 % (0-1); EOSINOPHILS # (AUTO) 0.3 X10'3 (0-0.9); EOSINOPHILS % (AUTO) 4.9 % (0-6); LYMPHOCYTES # (AUTO) 1.1 X10'3 (1.1-4.8); LYMPHOCYTES % (AUTO) 17.4 % (21-51); MEAN CORPUSCULAR HGB CONC 32.3 g/dL (33.0-36.5); MEAN CORPUSCULAR VOLUME 89.8 FL (78-98); MEAN PLATELET VOLUME 7.9 FL (7.4-10.4); MONOCYTES # (AUTO) 0.5 X10'3 (0-0.9); MONOCYTES % (AUTO) 7.2 % (2-12); NEUTROPHILS # (AUTO) 4.6 X10'3 (1.8-7.7); NEUTROPHILS % (AUTO) 69.7 % (42-75); PRE OP HEMATOCRIT 34.1 % (35.0-45.0); PRE OP PLATELET COUNT 123 X10'3 (140-440)
[2021-10-26 15:33] LABS: ALBUMIN 3.6 G/DL (3.4-5.0); ALBUMIN/GLOBULIN RATIO 0.9 (1.1-1.5); ALKALINE PHOSPHATASE 126 IU/L (46-116); BLOOD UREA NITROGEN 63 MG/DL (7-18); BUN/CREATININE RATIO 64.9 (6.6-38.0); CHLORIDE 105 MMOL/L (99-107); CREATININE 0.97 MG/DL (0.40-0.90); PRE OP ALT 30 U/L (30-65); PRE OP ANION GAP 9 (8-16); PRE OP AST 18 U/L (10-37); PRE OP BILIRUB, TOTAL 0.3 MG/DL (0.0-1.0); PRE OP GLUCOSE 124 MG/DL (70-104); PRE OP POTASSIUM 4.7 MMOL/L (3.4-5.1); PRE OP SODIUM 142 MMOL/L (135-145); TOTAL CARBON DIOXIDE 28.1 MMOL/L (24-32); TOTAL PROTEIN 7.5 G/DL (6.4-8.2); eGFR 56 ML/MIN
[~2021-10-27] VITALS: Ht 162.6 cm; Wt 94.8 kg
[2021-10-27] VITALS (8 sets, daily range): BP systolic 129–198; BP diastolic 59–93
[~2021-10-27] MED LIST changes: +BACI1CAP14 PO; +BUPIVAcaine 0.5% inj/PF 30 ML ONE; +BUPIVAcaine 0.5% inj/PF 30 ml vial IJ ONE; +CARV6.253 PO; -CYCL-1 PO; -DIAZ5TAB PO; +FENTANYL CITRATE/PF 50 MCG/1 ML VIAL ONE; +FURO-150 PO; +GABA300C PO; -LIDO700A32 TP; +LIDOcaine 0.5% (5mg/ml) 50ml vial ONE; -ORPH100T2 PO; +POTA-207 PO; -POTA20TA19 PO; +cefazolin/dext.iso 2gm/50ml IV ONE; +famotidine 20mg tablet PO ONE; +meperidine/PF 25mg/ml syringe IV PRN; +midazolam 1 mg/ML 2ml injection ONE; +morphine 2 MG/ML inj. syringe IV PRN; +morphine 4 MG/ML inj SYRINge IV PRN; +normal saline 1000ml 1,000 ML IV SCH; +ondansetron/PF 4mg/2ml inj IV PRN; +proCHLORperazine 10 MG/2 ml inj IV PRN; +propofol inj 20 ML IV ONE; +ringers solution, lacted 1,000 ML IV SCH
--- NOTE | 2021-10-27 09:44 | NUR ---
Received from OR via [facility], accompanied by Anesthesiologist DR HARDING and report given by Anesthesiolgist. PATIENT ON MASK AT 10 LITERS WITH LMA. LAC 20 GUAGE AND RIGHT HAND 22 GAUGE. CLEMENTINE BANADGE ON LEFT AND RIGHT HAND. LR RUNNING. VSS.
--- NOTE | 2021-10-27 09:44 | NUR ---
Received from OR via [facility] , accompanied by Anesthesiologist DR HARDING and report given by Anesthesiolgist. ON MASK AT 10 LITERS. VSS. LAC 20 GAUGE. RIGHT HAND 22 GAUGE. CLEMENTINE BANDAGES ON BOTH HANDS. Addendum: 10/27/21 at 1014 by Ingrid Donovan RN Amended: Links added.
--- NOTE | 2021-10-27 11:13 | NUR ---
PATIENT MEETS DISCHARGE CRITERIA. VSS. TEMP ON DISCHARGE WAS 36.0. DC'D BOTH PIV'S NO COMPLICATIONS. EDUCATED PATIENT ON HOW TO REMOVE COBAN FROM RIGHT HAND AND SECURE BANDAGE PLACED BY THE DOCTOR. SENT HER HOME WITH EXTRA TAPE AND COBAN TO SECURE BANDAGE. EDUCATED PATIENT ON THE IMPORTANCE OF KEEPING THE LEFT BANDAGE ON AND WIGGLING BOTH FINGERS OFTEN. PATIENT LEFT WITH ONE BAG AND HER KEYS AROUND HER NECK. Addendum: 10/27/21 at 1117 by Ingird Donovan RN Amended: Links added.
== END | disposition home or self-care (01) ==
LOC: PAS 05:40
PROVIDERS: ATTEND Orthopaedic Surgery Hand Surgery
DX: M18.12 Unilateral primary osteoarthritis of first carpometacarpal joint, left hand (principal); M65.331 Trigger finger, right middle finger; M16.12 Unilateral primary osteoarthritis, left hip; M96.1 Postlaminectomy syndrome, not elsewhere classified; F41.1 Generalized anxiety disorder; E66.9 Obesity, unspecified; Z68.35 Body mass index [BMI] 35.0-35.9, adult; J45.909 Unspecified asthma, uncomplicated; I25.2 Old myocardial infarction; F31.9 Bipolar disorder, unspecified; M10.9 Gout, unspecified; E11.22 Type 2 diabetes mellitus with diabetic chronic kidney disease; I13.0 Hypertensive heart and chronic kidney disease with heart failure and stage 1 through stage 4 chronic kidney disease, or unspecified chronic kidney disease; N18.30 Chronic kidney disease, stage 3 unspecified; I50.9 Heart failure, unspecified; G89.29 Other chronic pain; I25.10 Atherosclerotic heart disease of native coronary artery without angina pectoris; G47.30 Sleep apnea, unspecified; Z79.899 Other long term (current) drug therapy; Z79.4 Long term (current) use of insulin; Z79.82 Long term (current) use of aspirin; Z98.1 Arthrodesis status; Z98.890 Other specified postprocedural states; Z90.710 Acquired absence of both cervix and uterus
CPT/HCPCS: 25310; 25447; 26055; 36415; 80053; 82948; 85025; 87635; 93005; C9803; J2250; J2704; J3010; J3490; J7030; J7120; S0020; Z7506; Z7508; Z7512; A4215; A4618; A7000

== ENCOUNTER 2021-10-28 14:49 | Emergency (ER) | payer MEDICARE, MEDICAID ==
[~2021-10-28] VITALS: Ht 162.6 cm; Wt 89.5 kg
[~2021-10-28 14:49] MED LIST changes: -ALBU18HF2 INH; -ALLO100T PO; -BUPIVAcaine 0.5% inj/PF 30 ML ONE; -BUPIVAcaine 0.5% inj/PF 30 ml vial IJ ONE; -CETI-90 PO; -DOXE75CA3 PO; -DULA0.75 SQ; -FENTANYL CITRATE/PF 50 MCG/1 ML VIAL ONE; -FURO80TA87 PO; -LEVO75TA PO; -LIDOcaine 0.5% (5mg/ml) 50ml vial ONE; -LISI40TA13 PO; -LORA0.5T PO; -POTA-207 PO; -cefazolin/dext.iso 2gm/50ml IV ONE; -famotidine 20mg tablet PO ONE; -meperidine/PF 25mg/ml syringe IV PRN; -midazolam 1 mg/ML 2ml injection ONE; -morphine 2 MG/ML inj. syringe IV PRN; -morphine 4 MG/ML inj SYRINge IV PRN; -normal saline 1000ml 1,000 ML IV SCH; -ondansetron/PF 4mg/2ml inj IV PRN; -proCHLORperazine 10 MG/2 ml inj IV PRN; -propofol inj 20 ML IV ONE; -ringers solution, lacted 1,000 ML IV SCH
[2021-10-28] MEDS ORDERED: oxyCODONE/APAP 10/325mg tablet PO ONE (17:15)
[2021-10-28] MEDS ORDERED: HYDROmorphone 1 mg/ml syringe IM ONE (17:15)
[2021-10-28 18:32] VITALS: BP 150/67
== END 2021-10-28 18:34 | disposition home or self-care (01) ==
LOC: ER 14:51
DX: G89.18 Other acute postprocedural pain (principal); R22.32 Localized swelling, mass and lump, left upper limb; I25.10 Atherosclerotic heart disease of native coronary artery without angina pectoris; I11.0 Hypertensive heart disease with heart failure; I50.9 Heart failure, unspecified; I25.2 Old myocardial infarction; J45.909 Unspecified asthma, uncomplicated; G47.30 Sleep apnea, unspecified; E11.9 Type 2 diabetes mellitus without complications; G89.29 Other chronic pain; Z86.718 Personal history of other venous thrombosis and embolism; Z90.710 Acquired absence of both cervix and uterus; Z79.4 Long term (current) use of insulin; Z79.899 Other long term (current) drug therapy
CPT/HCPCS: 96372; 99283; J1170

== ENCOUNTER 2021-10-29 23:07 | Emergency (ER) | payer MEDICARE, MEDICAID ==
[~2021-10-29] VITALS: Ht 162.6 cm; Wt 88.6 kg
[2021-10-30 01:39] VITALS: BP 157/88
== END 2021-10-30 01:41 | disposition home or self-care (01) ==
LOC: ER 23:08
DX: Z48.00 Encounter for change or removal of nonsurgical wound dressing (principal); M79.632 Pain in left forearm; I25.10 Atherosclerotic heart disease of native coronary artery without angina pectoris; I11.0 Hypertensive heart disease with heart failure; I50.9 Heart failure, unspecified; I25.2 Old myocardial infarction; J45.909 Unspecified asthma, uncomplicated; G89.29 Other chronic pain; E11.9 Type 2 diabetes mellitus without complications; F31.9 Bipolar disorder, unspecified; Z87.01 Personal history of pneumonia (recurrent); Z86.19 Personal history of other infectious and parasitic diseases; Z86.718 Personal history of other venous thrombosis and embolism; Z90.710 Acquired absence of both cervix and uterus; Z98.890 Other specified postprocedural states; Z60.2 Problems related to living alone; Z79.82 Long term (current) use of aspirin; Z79.4 Long term (current) use of insulin; Z79.899 Other long term (current) drug therapy
CPT/HCPCS: 99281

== ENCOUNTER 2022-06-08 13:34 | Emergency (ER) | payer MEDICARE, MEDICAID ==
[~2022-06-08] VITALS: Ht 162.6 cm; Wt 100.0 kg
[2022-06-08 14:31] VITALS: BP 201/67
[2022-06-08] MEDS ORDERED: HYDR-3965 PO (16:06)
[2022-06-08] MEDS ORDERED: acetaminophen 325mg tablet PO ONE (16:20)
== END 2022-06-08 16:45 | disposition home or self-care (01) ==
LOC: ER 13:35
DX: M25.562 Pain in left knee (principal); R20.0 Anesthesia of skin; I11.0 Hypertensive heart disease with heart failure; J45.909 Unspecified asthma, uncomplicated; G89.29 Other chronic pain; M54.9 Dorsalgia, unspecified; F31.9 Bipolar disorder, unspecified; Z79.82 Long term (current) use of aspirin; Z79.899 Other long term (current) drug therapy
CPT/HCPCS: 29105; 99284

== ENCOUNTER 2023-03-06 10:57 | Emergency (ER) | payer MEDICARE, MEDICAID ==
[~2023-03-06] VITALS: Ht 170.2 cm; Wt 97.8 kg
[~2023-03-06 10:57] MED LIST changes: +DOCU-395 PO; -DOCU250C96 PO
[2023-03-06 11:21] LABS: EOSINOPHILS # (AUTO) 0.6 X10'3 (0-0.9)
[2023-03-06 11:24] LABS: BASOPHILS % (AUTO) 0.6 % (0-1); EOSINOPHILS % (AUTO) 8.9 % (0-6); HEMATOCRIT 36.9 % (35.0-45.0); LYMPHOCYTES # (AUTO) 0.9 X10'3 (1.1-4.8); LYMPHOCYTES % (AUTO) 14.3 % (21-51); MEAN CORPUSCULAR HEMOGLOBIN 29.1 PG (27.0-31.0); MEAN CORPUSCULAR HGB CONC 32.5 g/dL (33.0-36.5); MEAN CORPUSCULAR VOLUME 89.8 FL (78-98); MEAN PLATELET VOLUME 7.8 FL (7.4-10.4); MONOCYTES # (AUTO) 0.5 X10'3 (0-0.9); NEUTROPHILS # (AUTO) 4.5 X10'3 (1.8-7.7); NEUTROPHILS % (AUTO) 69.2 % (42-75); PLATELET COUNT 125 X10'3 (140-440); RED BLOOD COUNT 4.11 X10'6 (4.20-5.60); RED CELL DISTRIBUTION WIDTH 15.7 % (11.5-14.5); WHITE BLOOD COUNT 6.5 X10'3 (4.5-11.0)
[2023-03-06 11:25] LABS: ALANINE AMINOTRANSFERASE 26 U/L (12-78); ALBUMIN 3.6 G/DL (3.4-5.0); ALBUMIN/GLOBULIN RATIO 1.1 (1.1-1.5); ALKALINE PHOSPHATASE 93 IU/L (46-116); ANION GAP 11 (8-16); ASPARTATE AMINO TRANSFERASE 18 U/L (10-37); BILIRUBIN,TOTAL 0.2 MG/DL (0.1-1.0); BLOOD UREA NITROGEN 37 MG/DL (7-18); BUN/CREATININE RATIO 31.6 (10.0-20.0); CALCIUM 9.2 MG/DL (8.5-10.1); CHLORIDE 110 MMOL/L (99-107); CREATININE 1.17 MG/DL (0.40-0.90); GLUCOSE 154 MG/DL (70-104); SODIUM 145 MMOL/L (135-145); TOTAL CARBON DIOXIDE 23.7 MMOL/L (24-32); TOTAL PROTEIN 6.9 G/DL (6.4-8.2); eGFR 45 ML/MIN
[2023-03-06] MEDS ORDERED: LORazepam 2 mg/ml vial IV ONE (15:45)
[2023-03-06] MEDS ORDERED: cloNIDine 0.1 mg tablet PO ONE (15:45)
[2023-03-06] MEDS ORDERED: normal saline 1000ML IV soln IVB ONE (15:45)
[2023-03-06 16:29] LABS: BASOPHILS % (AUTO) 0.6 % (0-1); EOSINOPHILS # (AUTO) 0.6 X10'3 (0-0.9); EOSINOPHILS % (AUTO) 9.1 % (0-6); HEMATOCRIT 37.3 % (35.0-45.0); HEMOGLOBIN 11.9 g/dl (12.0-16.0); LYMPHOCYTES % (AUTO) 16.1 % (21-51); MEAN CORPUSCULAR HEMOGLOBIN 28.8 PG (27.0-31.0); MEAN CORPUSCULAR HGB CONC 31.8 g/dL (33.0-36.5); MEAN CORPUSCULAR VOLUME 90.6 FL (78-98); MONOCYTES # (AUTO) 0.4 X10'3 (0-0.9); MONOCYTES % (AUTO) 5.9 % (2-12); NEUTROPHILS # (AUTO) 4.4 X10'3 (1.8-7.7); NEUTROPHILS % (AUTO) 68.3 % (42-75); PLATELET COUNT 122 X10'3 (140-440); RED BLOOD COUNT 4.12 X10'6 (4.20-5.60); RED CELL DISTRIBUTION WIDTH 15.7 % (11.5-14.5); WHITE BLOOD COUNT 6.4 X10'3 (4.5-11.0)
[2023-03-06 16:46] LABS: ALANINE AMINOTRANSFERASE 7 U/L (12-78); ALBUMIN 3.7 G/DL (3.4-5.0); ALBUMIN/GLOBULIN RATIO 1.1 (1.1-1.5); ALKALINE PHOSPHATASE 91 IU/L (46-116); ANION GAP 10 (8-16); ASPARTATE AMINO TRANSFERASE 17 U/L (10-37); BILIRUBIN,TOTAL 0.2 MG/DL (0.1-1.0); BLOOD UREA NITROGEN 37 MG/DL (7-18); BUN/CREATININE RATIO 33.9 (10.0-20.0); CALCIUM 9.2 MG/DL (8.5-10.1); CHLORIDE 108 MMOL/L (99-107); CREATININE 1.09 MG/DL (0.40-0.90); GLUCOSE 92 MG/DL (70-104); POTASSIUM 4.9 MMOL/L (3.5-5.1); SODIUM 143 MMOL/L (135-145); TOTAL CARBON DIOXIDE 24.7 MMOL/L (24-32); TOTAL PROTEIN 7.1 G/DL (6.4-8.2); eGFR 49 ML/MIN
[2023-03-06 16:50] LABS: ETHANOL < 0.010 GM/DL (0.0-0.010)
[2023-03-06 16:50] LABS: CLARITY,URINE CLEAR (Clear); COLOR,URINE YELLOW (Yellow); GLUCOSE, URINE 500 mg/dl (Neg); KETONES,URINE NEGATIVE (Neg); LEUKOCYTE ESTERASE ,URINE NEGATIVE (Neg); NITRITES, URINE NEGATIVE (Neg); OCCULT BLOOD,URINE TRACE-INTACT (Neg); PH,URINE 5.5 (4.8-8.0); PROTEIN,URINE 100 mg/dl (Neg); UROBILINOGEN,URINE 0.2 E.U/dL (0.2-1.0)
[2023-03-06 17:12] LABS: UA COLLECTION TYPE CLN CATCH MIDSTREAM
[2023-03-06 17:14] LABS: BACTERIA,URINE NONE SEEN /HPF (Neg); RBC,URINE 0-2 /HPF (0-2); SQUAMOUS EPITHELIAL CELL,UR NONE SEEN /LPF (FEW); URINE AMPHETAMINE SCREEN NEGATIVE (Neg); URINE BARBITUATE SCREEN NEGATIVE (Neg); URINE BENZODIAZEPINES SCREEN NEGATIVE (Neg); URINE CANNABINOID SCREEN NEGATIVE (Neg); URINE COCAINE SCREEN NEGATIVE (Neg); URINE METHADONE SCREEN NEGATIVE (Neg); URINE OPIATE SCREEN NEGATIVE (Neg); URINE PHENCYCLIDINE SCREEN NEGATIVE (Neg); WBC,URINE 0-4 /HPF (0-4)
[2023-03-06 17:30] VITALS: BP 150/73; PULSE 71; RESP 16; O2SAT 98
[2023-03-06] MEDS ORDERED: normal saline 1000ml 1,000 ML IV ONE (17:50)
[2023-03-06] MEDS ORDERED: MECL-159 PO (17:54)
--- NOTE | 2023-03-06 19:21 | NUR ---
pt has account with [facility] [employer] and called for ride home. no drivers availible for tonight. [employer] also call, no drivers available. called [employer] but company does not accept partnership yet.
--- NOTE | 2023-03-06 19:43 | NUR ---
pt d/c via [facility] to home. pt has walking cane and able to ambulate well with it.
== END 2023-03-06 19:43 | disposition home or self-care (01) ==
LOC: ER 10:57
DX: R42 Dizziness and giddiness (principal)
CPT/HCPCS: 36415; 70450; 71045; 80053; 80305; 80320; 81001; 82948; 83880; 84484; 85025; 93005; 96361; 96374; 99285; J2060; J7030

== ENCOUNTER 2023-05-23 05:14 | Emergency (ER) | payer MEDICARE, MEDICAID ==
[~2023-05-23] VITALS: Ht 162.6 cm; Wt 90.0 kg
[~2023-05-23 05:14] MED LIST changes: +MECL-302 PO
[2023-05-23 05:28] VITALS: BP 167/75; PULSE 82; RESP 16; TEMP 97.3; O2SAT 97
[2023-05-23] MEDS ORDERED: HYDR-3965 PO (08:16)
== END 2023-05-23 08:58 | disposition home or self-care (01) ==
LOC: ER 05:15
DX: S93.505A Unspecified sprain of left lesser toe(s), initial encounter (principal); I11.0 Hypertensive heart disease with heart failure; I50.9 Heart failure, unspecified; J45.909 Unspecified asthma, uncomplicated; F31.9 Bipolar disorder, unspecified; M19.90 Unspecified osteoarthritis, unspecified site; Z79.82 Long term (current) use of aspirin; Z79.899 Other long term (current) drug therapy; Z90.710 Acquired absence of both cervix and uterus; X58.XXXA Exposure to other specified factors, initial encounter; Y93.89 Activity, other specified; Y92.89 Other specified places as the place of occurrence of the external cause; Y99.8 Other external cause status
CPT/HCPCS: 73630; 99283; L3265